=== PATIENT | female | born 2000 | race Caucasian/White ===

== ENCOUNTER 2020-01-03 19:33 | Emergency (ER) | payer OTHER ==
[~2020-01-03] VITALS: Ht 165.1 cm; Wt 75.0 kg
[2020-01-03 19:40] VITALS: BP 109/72; TEMP 99.1
[2020-01-03 21:22] VITALS: PULSE 78
== END 2020-01-03 20:55 | disposition home or self-care (01) ==
LOC: COL.ER 19:33
DX: S01.81XA Laceration without foreign body of other part of head, initial encounter (principal); S60.222A Contusion of left hand, initial encounter; S60.00XA Contusion of unspecified finger without damage to nail, initial encounter; R40.2410 Glasgow coma scale score 13-15, unspecified time; V19.9XXA Pedal cyclist (driver) (passenger) injured in unspecified traffic accident, initial encounter; Y92.410 Unspecified street and highway as the place of occurrence of the external cause

== ENCOUNTER → 2020-01-10 | Outpatient (CLI) | payer OTHER ==
[2020-01-10 11:46] VITALS: BP 102/69; PULSE 70; TEMP 98.6
== END ==
LOC: COL.ER 11:39
DX: Z48.02 Encounter for removal of sutures (principal)